=== PATIENT | male | born 1930 | race Caucasian/White ===

== ENCOUNTER 2016-05-12 20:48 | Inpatient (IN) | payer MEDICARE, MEDICAID ==
[~2016-05-12] VITALS: Ht 175.3 cm; Wt 67.1 kg
[2016-05-12 21:12] LABS: APPEARANCE,URINE Clear (CLEAR); BILIRUBIN,URINE Negative (NEGATIVE); BLOOD, URINE Moderate Ery/uL (NEGATIVE); COLOR,URINE Yellow (YELLOW); KETONES,URINE Negative (NEGATIVE); LEUKOCYTE ESTERASE ,URINE Negative (NEGATIVE); NITRITE, URINE Negative (NEGATIVE); PROTEIN,URINE Negative (NEGATIVE); UGLUCOSE Negative (NEGATIVE); UROBILINOGEN,URINE 0.2 EU/dL (0.2)
[2016-05-12 21:24] LABS: BACTERIA,URINE Rare /HPF (None Seen); SQUAMOUS EPITHELIAL CELL,UR Few /HPF (None Seen); WBC,URINE 0-2 /HPF (0-3)
[2016-05-12 21:32] LABS: BASOPHILS # (AUTO) 0.1 /CMM (0.0-0.2); BASOPHILS % (AUTO) 0.8 % (0.0-2.0); EOSINOPHILS % (AUTO) 0.6 % (0.0-6.0); HEMATOCRIT 38 % (39-51); HEMOGLOBIN 13.3 g/dL (13.5-17.5); LYMPHOCYTES # (AUTO) 1.3 /CMM (0.8-4.8); LYMPHOCYTES % (AUTO) 17.8 % (20.0-44.0); MEAN CORPUSCULAR HEMOGLOBIN 31 PG (26.0-33.0); MEAN CORPUSCULAR HGB CONC 35 g/dl (31.0-36.0); MEAN CORPUSCULAR VOLUME 87 fL (80-96); MONOCYTES # (AUTO) 0.4 /CMM (0.1-1.30); MONOCYTES % (AUTO) 5.1 % (2.0-12.0); NEUTROPHILS # (AUTO) 5.7 /CMM (1.8-8.9); NEUTROPHILS % (AUTO) 75.7 % (43.0-81.0); PLATELET COUNT (AUTO) 138 /CMM (150-450); RDW COEFFICIENT OF VARIATION 12.4 (11.5-15.0); RED BLOOD CELL COUNT(AUTO) 4.36 MIL/uL (4.5-6.0); WHITE BLOOD COUNT (AUTO) 7.5 K/uL (4.3-11.0)
[2016-05-12 21:41] LABS: POTASSIUM 4.1 mmol/L (3.5-5.1)
[2016-05-12 21:43] LABS: INR 1.06 (0.87-1.13)
[2016-05-12 21:47] LABS: ALBUMIN 3.5 g/dL (3.4-5.0); BILIRUBIN,DIRECT 0.2 mg/dL (0.0-0.2); BILIRUBIN,TOTAL 0.8 mg/dL (0.2-1.0); TOTAL PROTEIN, SERUM 6.8 g/dL (6.4-8.2)
[2016-05-12 21:49] LABS: TROPONIN I 0.042 ng/mL (0.00-0.056)
[2016-05-12 21:50] LABS: SALICYLATE 0.4 mg/dL (2.8-20.0)
[2016-05-12 22:01] LABS: THYROID STIMULATING HORMONE 2.331 uIU/mL (0.358-3.74)
[2016-05-12 23:00] VITALS: BP 159/77
[2016-05-13] MEDS ORDERED: HYDROCODONE/APAP 5/325MG 1 EACH TABLET PO PRN
[2016-05-13] MEDS ORDERED: ONDANSETRON HCL/PF 4 MG/2 ML VIAL IVP PRN
[2016-05-13] MEDS ORDERED: MAGNESIUM HYDROXIDE 30 ML UDC PO PRN
[2016-05-13] MEDS ORDERED: ZOLPIDEM TARTRATE 5 MG TABLET PO PRN
[2016-05-13] MEDS ORDERED: ENOXAPARIN SODIUM 30 MG/0.3 ML DISP.SYRIN SQ SCH
[2016-05-13] MEDS ORDERED: ACETAMINOPHEN 325 MG TABLET PO PRN
[2016-05-13] MEDS ORDERED: Z GUARD REMEDY 2 OZ OINT TP PRN
[2016-05-13] MEDS ORDERED: MAG HYDROX/AL HYDROX/SIMETH 30 ML UDC PO PRN
[2016-05-13] MEDS ORDERED: ACETAMINOPHEN 325 MG TABLET ONE (00:08)
[2016-05-13] MEDS ORDERED: DESM0.2T2 PO (00:08)
[2016-05-13] MEDS ORDERED: LEVO50TA8 PO (00:14)
[2016-05-13] MEDS ORDERED: SOLI5TAB PO (00:14)
[2016-05-13] MEDS ORDERED: ASPI-991 PO (00:14)
[2016-05-13] MEDS ORDERED: IMIP50TA7 PO (00:14)
[2016-05-13] MEDS ORDERED: CALC-838 PO (00:14)
[2016-05-13] MEDS ORDERED: SILO8CAP PO (00:14)
[2016-05-13] MEDS ORDERED: IV NS 0.9% 1,000 ML ONE (01:07)
[2016-05-13] MEDS ORDERED: IV SET PRIMARY PUMP SET 1 EA INFUS.SET MC ONE (01:08)
[2016-05-13] MEDS: IV NS 0.9% 1,000 ML IV PRN ×2 (01:15→19:07)
[2016-05-13 04:38] VITALS: BP 135/82
[2016-05-13 07:00] VITALS: BP 134/74
[2016-05-13 07:45] LABS: BASOPHILS % (AUTO) 0.3 % (0.0-2.0); EOSINOPHILS % (AUTO) 0.8 % (0.0-6.0); HEMATOCRIT 38 % (39-51); HEMOGLOBIN 13.1 g/dL (13.5-17.5); LYMPHOCYTES # (AUTO) 1.4 /CMM (0.8-4.8); LYMPHOCYTES % (AUTO) 27.8 % (20.0-44.0); MEAN CORPUSCULAR HEMOGLOBIN 30 PG (26.0-33.0); MEAN CORPUSCULAR HGB CONC 35 g/dl (31.0-36.0); MEAN CORPUSCULAR VOLUME 88 fL (80-96); MONOCYTES # (AUTO) 0.4 /CMM (0.1-1.30); MONOCYTES % (AUTO) 8.3 % (2.0-12.0); NEUTROPHILS # (AUTO) 3.1 /CMM (1.8-8.9); NEUTROPHILS % (AUTO) 62.8 % (43.0-81.0); PLATELET COUNT (AUTO) 129 /CMM (150-450); RDW COEFFICIENT OF VARIATION 13.3 (11.5-15.0); RED BLOOD CELL COUNT(AUTO) 4.32 MIL/uL (4.5-6.0)
[2016-05-13 07:54] LABS: CALCIUM, SERUM 8.1 mg/dL (8.5-10.1); CREATININE 0.8 mg/dL (0.6-1.3); MAGNESIUM 1.6 mg/dL (1.8-2.4); PHOSPHORUS 2.5 mg/dL (2.5-4.9); POTASSIUM 3.7 mmol/L (3.5-5.1)
[2016-05-13] MEDS: ASPIRIN 325 MG TABLET PO SCH (08:59)
[2016-05-13] MEDS: PANTOPRAZOLE 40 MG TABLET.DR PO SCH (09:00)
[2016-05-13] MEDS: CALCIUM CARB 600MG /VIT D 1 EACH TABLET PO SCH (09:00)
[2016-05-13] MEDS: LEVOTHYROXINE SODIUM 50 MCG TABLET PO SCH (09:00)
[2016-05-13] MEDS: SOLIFENACIN SUCCINATE 5 MG TABLET PO SCH (09:00)
[2016-05-13] MEDS ORDERED: SECONDARY IV SET 1 EA INFUS.SET MC ONE (10:50)
[2016-05-13] MEDS: Magnesium 1GM/D5W 100ML PREMIX 100 ML IV SCH ×4 (10:55→14:45)
[2016-05-13] MEDS ORDERED: IOHEXOL-350 100 ML VIAL IV ONE (13:55)
[2016-05-13] MEDS ORDERED: Magnesium 1GM/D5W 100ML PREMIX 1 G in PREMIX 1 EA IV SCH (14:00)
[2016-05-13 16:00] VITALS: BP 130/85
[2016-05-13 16:38] LABS: URINE SODIUM, RANDOM 28 mmol/l (40-220)
[2016-05-13 20:00] VITALS: BP 106/63
[2016-05-13 20:08] LABS: OSMOLALITY,URINE 163 mOS/kg (340-1090)
[2016-05-13] MEDS ORDERED: SILODOSIN 8 MG PO SCH (22:00)
[2016-05-13] MEDS ORDERED: DESMOPRESSIN ACETATE 0.1 MG TABLET PO SCH (22:00)
[2016-05-13] MEDS: IMIPRAMINE 25 MG TABLET PO SCH (22:56)
[2016-05-13] MEDS: ATORVASTATIN 40 MG TABLET PO SCH (22:56)
[2016-05-13] MEDS: ENOXAPARIN SODIUM 40 MG/0.4 ML DISP.SYRIN SQ SCH (22:58)
[2016-05-14] MEDS: IV NS 0.9% 1,000 ML IV PRN (06:29)
[2016-05-14 08:00] VITALS: BP 139/69
[2016-05-14] MEDS: ASPIRIN 325 MG TABLET PO SCH (08:39)
[2016-05-14] MEDS: SOLIFENACIN SUCCINATE 5 MG TABLET PO SCH (08:39)
[2016-05-14] MEDS: LEVOTHYROXINE SODIUM 50 MCG TABLET PO SCH (08:39)
[2016-05-14] MEDS: CALCIUM CARB 600MG /VIT D 1 EACH TABLET PO SCH (08:39)
[2016-05-14] MEDS: PANTOPRAZOLE 40 MG TABLET.DR PO SCH (08:39)
[2016-05-14 13:14] LABS: BASOPHILS % (AUTO) 0.3 % (0.0-2.0); EOSINOPHILS # (AUTO) 0.1 /CMM (0.0-0.7); EOSINOPHILS % (AUTO) 1.7 % (0.0-6.0); HEMATOCRIT 39 % (39-51); LYMPHOCYTES # (AUTO) 1.1 /CMM (0.8-4.8); LYMPHOCYTES % (AUTO) 25.6 % (20.0-44.0); MEAN CORPUSCULAR HEMOGLOBIN 30 PG (26.0-33.0); MEAN CORPUSCULAR HGB CONC 33 g/dl (31.0-36.0); MEAN CORPUSCULAR VOLUME 89 fL (80-96); MONOCYTES # (AUTO) 0.4 /CMM (0.1-1.30); MONOCYTES % (AUTO) 9.5 % (2.0-12.0); NEUTROPHILS # (AUTO) 2.7 /CMM (1.8-8.9); NEUTROPHILS % (AUTO) 62.9 % (43.0-81.0); PLATELET COUNT (AUTO) 150 /CMM (150-450); RDW COEFFICIENT OF VARIATION 13.5 (11.5-15.0); RED BLOOD CELL COUNT(AUTO) 4.39 MIL/uL (4.5-6.0); WHITE BLOOD COUNT (AUTO) 4.3 K/uL (4.3-11.0)
[2016-05-14 13:15] LABS: CREATININE 0.9 mg/dL (0.6-1.3); MAGNESIUM 1.7 mg/dL (1.8-2.4); PHOSPHORUS 3.3 mg/dL (2.5-4.9)
[2016-05-14 13:24] LABS: THYROID STIMULATING HORMONE 4.671 uIU/mL (0.358-3.74); URIC ACID 3.1 mg/dL (2.6-7.2)
[2016-05-14] MEDS ORDERED: DOCUSATE SODIUM 100 MG CAPSULE PO PRN (15:00)
[2016-05-14] MEDS: Magnesium 1GM/D5W 100ML PREMIX 100 ML IV SCH ×2 (15:05→16:23)
[2016-05-14] MEDS ORDERED: SET RED CAP 1 EA INFUS.SET MC ONE (15:24)
[2016-05-14 16:00] VITALS: BP 140/65
[2016-05-14 20:00] VITALS: BP 112/64
[2016-05-14] MEDS: ENOXAPARIN SODIUM 40 MG/0.4 ML DISP.SYRIN SQ SCH (21:06)
[2016-05-14] MEDS: ATORVASTATIN 40 MG TABLET PO SCH (21:07)
[2016-05-14] MEDS: IMIPRAMINE 25 MG TABLET PO SCH (21:07)
[2016-05-14 22:00] VITALS: BP 112/64
[2016-05-15 06:48] LABS: BASOPHILS % (AUTO) 0.6 % (0.0-2.0); EOSINOPHILS # (AUTO) 0.1 /CMM (0.0-0.7); EOSINOPHILS % (AUTO) 2.2 % (0.0-6.0); HEMATOCRIT 39 % (39-51); HEMOGLOBIN 13.3 g/dL (13.5-17.5); LYMPHOCYTES # (AUTO) 1.2 /CMM (0.8-4.8); LYMPHOCYTES % (AUTO) 24.6 % (20.0-44.0); MEAN CORPUSCULAR HEMOGLOBIN 30 PG (26.0-33.0); MEAN CORPUSCULAR HGB CONC 34 g/dl (31.0-36.0); MEAN CORPUSCULAR VOLUME 88 fL (80-96); MONOCYTES # (AUTO) 0.4 /CMM (0.1-1.30); MONOCYTES % (AUTO) 8.1 % (2.0-12.0); NEUTROPHILS # (AUTO) 3.1 /CMM (1.8-8.9); NEUTROPHILS % (AUTO) 64.5 % (43.0-81.0); PLATELET COUNT (AUTO) 134 /CMM (150-450); RDW COEFFICIENT OF VARIATION 13.4 (11.5-15.0); RED BLOOD CELL COUNT(AUTO) 4.42 MIL/uL (4.5-6.0); WHITE BLOOD COUNT (AUTO) 4.8 K/uL (4.3-11.0)
[2016-05-15 07:12] LABS: CALCIUM, SERUM 8.2 mg/dL (8.5-10.1); CREATININE 0.9 mg/dL (0.6-1.3)
[2016-05-15] MEDS: SOLIFENACIN SUCCINATE 5 MG TABLET PO SCH (08:10)
[2016-05-15] MEDS: PANTOPRAZOLE 40 MG TABLET.DR PO SCH (08:10)
[2016-05-15] MEDS: LEVOTHYROXINE SODIUM 50 MCG TABLET PO SCH (08:10)
[2016-05-15] MEDS: CALCIUM CARB 600MG /VIT D 1 EACH TABLET PO SCH (08:10)
[2016-05-15 08:14] VITALS: BP 131/77
[2016-05-15] MEDS ORDERED: CLOPIDOGREL BISULFATE 75 MG TABLET PO SCH (09:00)
== END 2016-05-15 15:45 | disposition home health service (06) | DRG 64 ==
LOC: ER 20:50 → TELE 22:18 → MED 05-13 09:44
PROVIDERS: ADMIT Internal Medicine; ATTEND Internal Medicine
DX: I63.9 Cerebral infarction, unspecified (principal); G93.40 Encephalopathy, unspecified; G45.9 Transient cerebral ischemic attack, unspecified; E22.2 Syndrome of inappropriate secretion of antidiuretic hormone; N40.0 Benign prostatic hyperplasia without lower urinary tract symptoms; I10 Essential (primary) hypertension; D63.8 Anemia in other chronic diseases classified elsewhere; Z95.0 Presence of cardiac pacemaker; E03.9 Hypothyroidism, unspecified; I25.10 Atherosclerotic heart disease of native coronary artery without angina pectoris; I65.23 Occlusion and stenosis of bilateral carotid arteries; T38.895A Adverse effect of other hormones and synthetic substitutes, initial encounter; Y92.009 Unspecified place in unspecified non-institutional (private) residence as the place of occurrence of the external cause; R33.8 Other retention of urine
CPT/HCPCS: 36415; 70450-TC; 70496-TC; 70498-TC; 71010-TC; 76770-TC; 80048-TC; 80061-TC; 80076-TC; 80305; 81000-TC; 82962-TC; 83735-TC; 83935-TC; 84100-TC; 84300-TC; 84443-TC; 84484-TC; 84550-TC; 85025-TC; 85652-TC; 85730-TC; 86592; 87081-TC; 93307-TC; 93880-TC; A4216; A4606; G0480; G6039-TC; J1650; J3475; J7030; Q9967; Z7610

== ENCOUNTER 2019-07-24 19:25 | Inpatient (IN) | payer MEDICARE, OTHER ==
[~2019-07-24] VITALS: Ht 162.6 cm; Wt 56.7 kg
[~2019-07-24 19:25] MED LIST: CALC-838 PO; DESM0.2T4 PO; IMIP50TA7 PO; SILO8CAP2 PO; SOLI5TAB2 PO
[2019-07-24 19:51] LABS: BASOPHILS # (AUTO) 0.1 /CMM (0.0-0.2); EOSINOPHILS % (AUTO) 1.3 % (0.0-6.0); HEMATOCRIT 41 % (39-51); HEMOGLOBIN 13.4 g/dL (13.5-17.5); LYMPHOCYTES # (AUTO) 1.6 /CMM (0.8-4.8); LYMPHOCYTES % (AUTO) 30.9 % (20.0-44.0); MEAN CORPUSCULAR HGB CONC 32 g/dl (31.0-36.0); MEAN CORPUSCULAR VOLUME 93 fL (80-96); MONOCYTES # (AUTO) 0.3 /CMM (0.1-1.30); MONOCYTES % (AUTO) 6.3 % (2.0-12.0); NEUTROPHILS # (AUTO) 3.2 /CMM (1.8-8.9); NEUTROPHILS % (AUTO) 60.5 % (43.0-81.0); PLATELET COUNT (AUTO) 131 /CMM (150-450); RED BLOOD CELL COUNT(AUTO) 4.44 MIL/uL (4.5-6.0); WHITE BLOOD COUNT (AUTO) 5.3 K/uL (4.3-11.0)
--- NOTE | 2019-07-24 19:52 | NUR ---
SADIA FROM HOME WITH DAEMMETTTHER AT BEDSIDE. TO ER BED 6. AAOX4. NOT IN RESP DISTRESS. BROUGHT IN FOR SOB COUPLE OF HOURS JIRA ADMINISTRATOR. PT WAS REPORTED BY EMS SATTING @ 90%. BREATHING RAPID AND SHALLOW. PLACED ON O2 VIA NC @ 4LPM SATTING AT 97%. MD WAS AT BEDSIDE FOR EVAL. ORDERS RECEIVED NOTED AND CARRIED OUT. IV LINE OBTAINED ON THE L FOREARM 20G. BLOO DRAWN AND GIVEN TO SMART GRID ENGINEER.
[2019-07-24 20:08] LABS: CALCIUM, SERUM 8.8 mg/dL (8.5-10.1); CREATININE 0.9 mg/dL (0.6-1.3); POTASSIUM 4.5 mmol/L (3.5-5.1)
[2019-07-24 20:17] LABS: D-DIMER 0.55 mg/L(FEU (0.17-0.50)
[2019-07-24 20:23] LABS: ALBUMIN 3.9 g/dL (3.4-5.0); BILIRUBIN,DIRECT 0.1 mg/dL (0.0-0.2); BILIRUBIN,TOTAL 0.7 mg/dL (0.2-1.0); TOTAL PROTEIN, SERUM 7.4 g/dL (6.4-8.2)
--- NOTE | 2019-07-24 21:07 | NUR ---
TELE 324-2
--- NOTE | 2019-07-24 21:40 | NUR ---
REPORT GIVEN TO GERARD VEGA FOR TONI.
[2019-07-24] MEDS ORDERED: FUROSEMIDE 20 MG/2 ML VIAL ONE (21:51)
[2019-07-24] MEDS ORDERED: FUROSEMIDE 20 MG/2 ML VIAL IV ONE (22:00)
--- NOTE | 2019-07-24 22:25 | NUR ---
URINE OUTPUT NOTED @ 425ML
[2019-07-24 22:30] VITALS: BP 156/82
--- NOTE | 2019-07-24 22:30 | NUR ---
ARTISTS' MODEL NOTES Received patient from ER via gurney. On O2 inhalation via NC @ 2LPM, saturation well. Slight SOB noted with exertion. Patient denies any discomfort at this time. Transferred patient to bed comfortably. Noted ambulatory with assistance. Admission routine done. Patient's belongings inventory completed by the assigned FLUSH TESTER. Kept on bed clean, dry and comfortable. On tele monitor with V-pacing with PVCs multifocal no ST elevation. Awaiting for admission orders from commissioner of internal revenue MD, Dr. Morin. On fall and aspiration precautions. Urinal provided at bedside. Will continue to monitor accordingly.
--- NOTE | 2019-07-24 22:35 | NUR ---
RN NOTES Put on airborn/contact isolation while pending covid test result. Instructed patient on isolation precautions, verbalized understanding.
--- NOTE | 2019-07-24 22:38 | NUR ---
PT TRANPORTED TO UNIT ON [facility] WITH EMT AND RN AT BEDSIDE W/ ALCS PROTOCOL. NAD NOTED DURTING TRANSPORT. PT AMBULATED FROM RNEY TO BED ON STEADY GAIT W/O ASSIST
--- NOTE | 2019-07-24 23:00 | NUR ---
DAUGHTER: OLAMIDE [phone]
--- NOTE | 2019-07-24 23:15 | NUR ---
RN NOTES Admission orders noted and carried out.
[2019-07-24] MEDS ORDERED: HYDROCODONE/APAP 5/325MG 1 EACH TABLET PO PRN (23:30)
[2019-07-24] MEDS ORDERED: MAG HYDROX/AL HYDROX/SIMETH 30 ML UDC PO PRN (23:30)
[2019-07-24] MEDS ORDERED: ONDANSETRON HCL/PF 4 MG/2 ML VIAL IVP PRN (23:30)
[2019-07-24] MEDS ORDERED: ACETAMINOPHEN 325 MG TABLET PO PRN (23:30)
[2019-07-24] MEDS ORDERED: ZOLPIDEM TARTRATE 5 MG TABLET PO PRN (23:30)
[2019-07-24] MEDS ORDERED: MAGNESIUM HYDROXIDE 30 ML UDC PO PRN (23:30)
[2019-07-24] MEDS ORDERED: Z GUARD REMEDY 2 OZ OINT TP PRN (23:30)
--- NOTE | 2019-07-24 23:32 | NUR ---
PATIENT NOTED WITH NSR AT THIS TIME.
[2019-07-24] MEDS: ENOXAPARIN SODIUM 40 MG/0.4 ML DISP.SYRIN SQ SCH (23:38)
[2019-07-25] VITALS: BP 147/88
[2019-07-25 00:01] VITALS: BP 147/88
[2019-07-25 04:00] VITALS: BP 138/79
--- NOTE | 2019-07-25 06:50 | NUR ---
JEWEL SORTER CLOSING NOTES Patient asleep on bed, on high Fowlers position. On O2 inhalation via NC @ 2LPM, no SOB/respiratory distress noted, breathing even and unlabored. Patient denies any discomfort at this time. All nursing needs attended. Due meds given as ordered. On tele monitor with NSR noted. With occasional V-pacing with multifocal PVCs. Kept on bed clean, dry and comfortable. Endorsed.
[2019-07-25 06:56] LABS: BASOPHILS % (AUTO) 0.7 % (0.0-2.0); EOSINOPHILS % (AUTO) 0.8 % (0.0-6.0); HEMATOCRIT 40 % (39-51); HEMOGLOBIN 13.4 g/dL (13.5-17.5); LYMPHOCYTES # (AUTO) 1.4 /CMM (0.8-4.8); LYMPHOCYTES % (AUTO) 27.9 % (20.0-44.0); MEAN CORPUSCULAR HGB CONC 33 g/dl (31.0-36.0); MEAN CORPUSCULAR VOLUME 92 fL (80-96); MONOCYTES # (AUTO) 0.3 /CMM (0.1-1.30); MONOCYTES % (AUTO) 6.9 % (2.0-12.0); NEUTROPHILS # (AUTO) 3.1 /CMM (1.8-8.9); NEUTROPHILS % (AUTO) 63.7 % (43.0-81.0); PLATELET COUNT (AUTO) 126 /CMM (150-450); RED BLOOD CELL COUNT(AUTO) 4.36 MIL/uL (4.5-6.0); WHITE BLOOD COUNT (AUTO) 4.9 K/uL (4.3-11.0)
[2019-07-25 07:00] LABS: ALBUMIN 3.6 g/dL (3.4-5.0); CALCIUM, SERUM 8.5 mg/dL (8.5-10.1); MAGNESIUM 1.9 mg/dL (1.8-2.4); PHOSPHORUS 3.2 mg/dL (2.5-4.9); POTASSIUM 3.5 mmol/L (3.5-5.1); TOTAL PROTEIN, SERUM 6.8 g/dL (6.4-8.2)
[2019-07-25 07:07] LABS: THYROID STIMULATING HORMONE 2.718 uIU/mL (0.358-3.74)
--- NOTE | 2019-07-25 07:39 | NUR ---
rn notes patient received on nasal cannula, no sob noted, patient shows no s/s of pain at this time. a/o x4 and speaks no latvian. Tele monitor present with NSR. BRP with urinal. LFA 20. bed at the lowest setting, call light within reach, side rails up x2.
[2019-07-25] MEDS ORDERED: FUROSEMIDE 20 MG/2 ML VIAL IV SCH (09:00)
[2019-07-25] MEDS ORDERED: CLON0.5T4 PO (09:30)
[2019-07-25] MEDS ORDERED: TAMS-12 PO (09:30)
[2019-07-25] MEDS ORDERED: NEBI5TAB8 PO (09:30)
[2019-07-25] MEDS ORDERED: CYAN-51 PO (09:30)
[2019-07-25] MEDS ORDERED: CLOP75TA15 PO (09:30)
[2019-07-25] MEDS ORDERED: IMIP50TA7 PO (09:30)
[2019-07-25] MEDS ORDERED: ATOR10TA PO (09:30)
[2019-07-25] MEDS ORDERED: SOLI5TAB2 PO (09:30)
[2019-07-25] MEDS ORDERED: CALC-838 PO (09:30)
[2019-07-25] MEDS ORDERED: LEVO50TA PO (09:30)
[2019-07-25] MEDS ORDERED: MECL-159 PO (09:31)
[2019-07-25 09:43] LABS: C-REACTIVE PROTEIN 0.3 mg/dL (0.0-0.9)
[2019-07-25 09:43] LABS: THYROID STIMULATING HORMONE 2.834 uIU/mL (0.358-3.74)
[2019-07-25] MEDS: POTASSIUM CHLORIDE 20 MEQ TAB.PRT.SR PO SCH ×3 (10:08→12:27)
[2019-07-25] MEDS: FUROSEMIDE 40 MG/4 ML VIAL IV SCH ×3 (10:11→17:09)
[2019-07-25] MEDS ORDERED: clonazePAM 0.5 MG TABLET PO PRN (10:30)
[2019-07-25] MEDS ORDERED: MECLIZINE HCL 25 MG TABLET PO PRN (10:30)
--- NOTE | 2019-07-25 10:46 | NUR ---
MANOLO CONSULT: SW received consult for "lives alone" SW attempted to meet with pt at bedside, however, pt is currently in isolation for r/o COVID. SW called pt and pt stated his Syrian is is very bad and only speaks Guinean. At this time due to isolation precaution, SW is unable to use the translation phone. MANOLO will contact pts daughter for collateral information.
--- NOTE | 2019-07-25 10:56 | NUR ---
FAMILY CONTACT: SW contacted pts granddaughter Leela ([phone]) and discussed pts current living situation. She states pt lives alone and before making any decisions regarding placement options she would like to talk to the hospitalist regarding pts current medical condition as she states she is unaware what is going on with pt. SW stated that she would inform hospitalist. MANOLO contacted hospitalist and requested a call to granddaughter.
[2019-07-25] MEDS: OXYBUTYNIN CHLORIDE 5 MG TABLET PO SCH ×2 (11:15→17:09)
[2019-07-25] MEDS: CHOLECALCIFEROL 1,000 UNIT TABLET (VIT D3) PO SCH (11:15)
[2019-07-25] MEDS: CYANOCOBALAMIN 500 MCG TABLET PO SCH (11:15)
--- NOTE | 2019-07-25 11:23 | NUR ---
MANOLO NOTE: MANOLO informed Joana, case assistant that pt may need placement. She stated she will call granddaughter Leela [phone] to discuss placement options.
[2019-07-25] MEDS: IMIPRAMINE 25 MG TABLET PO SCH (12:27)
[2019-07-25] MEDS: TAMSULOSIN 0.4 MG CAP.SR.24H PO SCH (17:09)
[2019-07-25] MEDS: METOPROLOL TARTRATE 25 MG TABLET PO SCH (17:09)
--- NOTE | 2019-07-25 18:12 | NUR ---
rn notes TONI given to Andie RN, patient to be transfered to [facility]
--- NOTE | 2019-07-25 18:54 | NUR ---
RECEIVED PATIENT FROM MED SURG. PATIENT IS SETTLED IN ROOM. NO SIGNS OF ACUTE DISTRESS/ RESPIRATORY DISTRESS NOTED. SAFETY MEASURES IMPLEMENTED, BED IN LOWEST POSITION, LOCKED, SIDE RAILS UP, CALL LIGHT WITHIN REACH. WILL ENDORSE TO ONCOMING SHIFT RN FOR CONTINUITY OF CARE. 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
[2019-07-25 20:00] VITALS: BP 134/65
[2019-07-25] MEDS: ENOXAPARIN SODIUM 40 MG/0.4 ML DISP.SYRIN SQ SCH (23:07)
[2019-07-26] VITALS (7 sets, daily range): BP systolic 99–131; BP diastolic 61–77
--- NOTE | 2019-07-26 06:16 | NUR ---
RN note Received patient in bed awake watching TV with no distress noted. Breathing even and unlabored. On O2 via nasal cannula at 2lpm tolerating well. Vital signs within normal level. No complaint of pain or discomfort. Alert and oriented. Able to verbalize needs and answers question, ambulatory, says "thank you". Burmese, Chinese speaking with little italian. At about 2100, granddaughter called. She just spoke with her grandfather and she said her grandfather was confused because half of the question she asked was answered wrongly like "Do you know where you are? She also said that her grandfather has a history of stroke and the only indication was confusion. No pain or any manifestation that he is having a stroke. Responded that for now continuous monitoring will be done and will call her if there is any change. Patient was constantly monitored. No significant change of condition noted, alert and oriented x 3. Kept clean and dry. Will endorse to next shift for continuity of care.
[2019-07-26] MEDS: CYANOCOBALAMIN 500 MCG TABLET PO SCH (08:18)
[2019-07-26] MEDS: TAMSULOSIN 0.4 MG CAP.SR.24H PO SCH ×2 (08:18→17:57)
[2019-07-26] MEDS: LEVOTHYROXINE SODIUM 50 MCG TABLET PO SCH (08:18)
[2019-07-26] MEDS: OXYBUTYNIN CHLORIDE 5 MG TABLET PO SCH ×2 (08:18→17:57)
[2019-07-26] MEDS: ATORVASTATIN 10 MG TABLET PO SCH (08:19)
[2019-07-26] MEDS: CLOPIDOGREL BISULFATE 75 MG TABLET PO SCH (08:19)
[2019-07-26] MEDS: IMIPRAMINE 25 MG TABLET PO SCH (09:39)
[2019-07-26] MEDS: FUROSEMIDE 40 MG TABLET PO SCH (09:40)
[2019-07-26] MEDS: POTASSIUM CHLORIDE 20 MEQ TAB.PRT.SR PO SCH (09:41)
--- NOTE | 2019-07-26 10:19 | NUR ---
RN NOTE 0715: Received patient awake, A/Ox4, Beninese speaking, understand little Czech. On 2LPM of O2 via NC, no respiratory distress noted at this time. With good UOP per previous shift. 0830: Due meds given, tolerated. Tolerated diet well. Placed patient on room air, will monitor breathing. 30: CT called for CT head w/o, informed them that patient is ready. 55: S/E by Dr. Brenner. Per Echo/US tech, prelim EF 20-25% and LLE DVT, on Lovenox at hs. Restarted patient on Lasix 40 PO daily, made patient aware. 1010: Still awaiting CT. No any significant changes noted at this time.
[2019-07-26 11:58] LABS: ALBUMIN 3.6 g/dL (3.4-5.0); BILIRUBIN,TOTAL 0.6 mg/dL (0.2-1.0); CALCIUM, SERUM 8.9 mg/dL (8.5-10.1); CREATININE 1.3 mg/dL (0.6-1.3); MAGNESIUM 1.9 mg/dL (1.8-2.4); PHOSPHORUS 3.7 mg/dL (2.5-4.9); POTASSIUM 3.6 mmol/L (3.5-5.1); TOTAL PROTEIN, SERUM 6.9 g/dL (6.4-8.2)
[2019-07-26 11:59] LABS: BASOPHILS % (AUTO) 0.5 % (0.0-2.0); EOSINOPHILS % (AUTO) 0.7 % (0.0-6.0); HEMATOCRIT 42 % (39-51); HEMOGLOBIN 13.8 g/dL (13.5-17.5); LYMPHOCYTES % (AUTO) 20.4 % (20.0-44.0); MEAN CORPUSCULAR HGB CONC 33 g/dl (31.0-36.0); MEAN CORPUSCULAR VOLUME 92 fL (80-96); MONOCYTES # (AUTO) 0.3 /CMM (0.1-1.30); MONOCYTES % (AUTO) 7.2 % (2.0-12.0); NEUTROPHILS # (AUTO) 3.5 /CMM (1.8-8.9); NEUTROPHILS % (AUTO) 71.2 % (43.0-81.0); PLATELET COUNT (AUTO) 131 /CMM (150-450); RED BLOOD CELL COUNT(AUTO) 4.57 MIL/uL (4.5-6.0); WHITE BLOOD COUNT (AUTO) 4.8 K/uL (4.3-11.0)
[2019-07-26] MEDS: CHOLECALCIFEROL 1,000 UNIT TABLET (VIT D3) PO SCH (12:27)
--- NOTE | 2019-07-26 12:51 | NUR ---
RN NOTE Done with CT head, waiting for result. Reported to Michael GEE for TONI. No any significant changes. Able to ambulate in the room with just supervision.
--- NOTE | 2019-07-26 13:12 | NUR ---
SECURITY CHECKER NOTES RECEIVED PATIENT FROM NURSE GARZA FOR TONI, A/O X 4, BREATHING AT ROOM AIR, UNLABORED BREATHING, NO SIGNS OF RESPIRATORY DISTRESS, SIDE RAILS UP.
--- NOTE | 2019-07-26 14:00 | NUR ---
MACHINE I CUTTER NOTES ENDORSED PATIENT TO NURSE RIVAS FOR TONI. PATIENT IS A/0 X 4, BREATHING AT ROOM AIR, AMBULATORY WITH ASSIST.
--- NOTE | 2019-07-26 14:30 | NUR ---
RN NOTE TRANSFERRED FROM [facility] Received report from Michael GEE in [facility]. Patient is in room 201, A/O x4, showing no signs of acute distress or SOB, breathing is even and unlabored, saturating 96% on RA. BP 104/72, HR 74 RR 18 T 98.3. IV line in the RFA #20g s/l is clean and intact flushing well. DEE pacemaker noted. Skin assessed and skin remains intact. 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 Bed is in lowest position, side rails x3 in upright position, call light is within reach and patient is aware of how to call for assistance when needed. Fall, safety and aspiration precautions enforced. Will continue with plan of care.
--- NOTE | 2019-07-26 16:09 | NUR ---
RN NOTE DC Lovenox per MD. Patient is already on Plavix.
[2019-07-26] MEDS: METOPROLOL TARTRATE 25 MG TABLET PO SCH (17:57)
--- NOTE | 2019-07-26 19:14 | NUR ---
RN CLOSING NOTE Patient is resting in bed, A/O x4, showing no signs of acute distress or SOB, breathing is even and unlabored, saturating 96% on RA. IV line in the RFA #20g s/l is clean and intact flushing well. DEE pacemaker noted. All patient needs met, all due medications given, patient kept clean and dry throughout shift. Bed is in lowest position, side rails x3 in upright position, call light is within reach and patient is aware of how to call for assistance when needed. Fall, safety and aspiration precautions enforced. Will endorse to conservation worker for TONI.
--- NOTE | 2019-07-26 19:30 | NUR ---
Received patient in the bed. Alert and orienated x4. Speaks Tuvaluan but with gesture and him understanding some sami we are able to communicate. Spoke to his dtr on the phone, requied eye gtt to help his dry eye, MD sood ordered Artifical tear. Noted upper and lower dentures in the mouth Bed alarm director student union light within his reach reviewed with the patient
[2019-07-26] MEDS ORDERED: POLYVINYL ALCOHOL 15 ML BOTTLE EACHEYE PRN ×2 (21:00)
--- NOTE | 2019-07-27 06:55 | NUR ---
OOB this AM in the room doing leg exercisizing and is alert and orientatedX4. Smiling and No SOB slept thru the night. Before going to sleep last night we ambulated the hallway unsteady on his legs
--- NOTE | 2019-07-27 07:51 | NUR ---
MS RN OPENING NOTE PATIENT IN BED RESTING COMFORTABLY. PATIENT IN NO ACUTE DISTRESS. NO SOB NOTED. PATIENT BREATHING IS EVEN AND UNLABORED. PATIENT STATES NO PAIN AT THIS TIME. PATIENT SAFETY PRECAUTIONS IN PLACE. PATIENT BED IS LOCKED AND IN LOWEST POSITION. CALL LIGHT WITHIN REACH. WILL CONTINUE TO MONITOR.
[2019-07-27 08:00] VITALS: BP 91/51
[2019-07-27] MEDS: ATORVASTATIN 10 MG TABLET PO SCH (08:14)
[2019-07-27] MEDS: OXYBUTYNIN CHLORIDE 5 MG TABLET PO SCH (08:14)
[2019-07-27] MEDS: LEVOTHYROXINE SODIUM 50 MCG TABLET PO SCH (08:14)
[2019-07-27] MEDS: CYANOCOBALAMIN 500 MCG TABLET PO SCH (08:14)
[2019-07-27] MEDS: TAMSULOSIN 0.4 MG CAP.SR.24H PO SCH (08:14)
[2019-07-27] MEDS: POTASSIUM CHLORIDE 20 MEQ TAB.PRT.SR PO SCH (08:15)
[2019-07-27] MEDS: CLOPIDOGREL BISULFATE 75 MG TABLET PO SCH (08:15)
[2019-07-27] MEDS: FUROSEMIDE 40 MG TABLET PO SCH (08:17)
[2019-07-27] MEDS: IMIPRAMINE 25 MG TABLET PO SCH (08:17)
--- NOTE | 2019-07-27 08:17 | NUR ---
MS RN NOTE HELD LASIX 0900 DOSE DUE TO LOW BP OF 91/51. PATIENT IN NO ACUTE DISTRESS. PATIENT TALKING, ALERT AND ORIENTED.
[2019-07-27] MEDS ORDERED: NEBI5TAB8 PO (10:12)
[2019-07-27] MEDS ORDERED: FURO-145 PO (10:12)
[2019-07-27 10:31] VITALS: BP 108/58
--- NOTE | 2019-07-27 14:50 | NUR ---
MS RN NOTE RECEIVED CALL FROM [facility] RENAL RADIOLOGY RESULTS FOR ULTRASOUND LOWER EXTREMITY IS NONOCCLUSIVE LEFT FEMORAL VEIN THROMBUS. DR. PRADO MADE AWARE AND NOTIFIED.
--- NOTE | 2019-07-27 14:51 | NUR ---
MS DIRECT SERVICE PROFESSIONAL NOTE PATIENT MEDICALLY CLEARED FOR DISCHARGE. PATIENT IN NO ACUTE DISTRESS. NO SOB NOTED. PATIENT BREATHING IS EVEN AND UNLABORED. DC INSTRUCTIONS PROVIDED TO PATIENT WITH DAUGHTER DISTRICT SERVICE MANAGER. PATIENT AND DAUGHTER VERBALIZED UNDERSTANDING. PATIENT HAS BELONGINGS AND SIGNED BELONGINGS LIST. PATIENT IV REMOVED. ID BAND REMOVED. PATIENT REFUSED TO HAVE SKIN ASSESSMENT. EDUCATED RISKS VS BENEFITS. PATIENT CONTINUED TO REFUSE. PATIENT KEPT CLEAN AND DRY THROUGHOUT SHIFT. PATIENT NEEDS AND CONCERNS ADDRESSED. PATIENT PICKED UP BY DAUGHTER AND GOING BACK HOME WITH HOMEHEALTH. MD AWARE OF DISCHARGE.
--- NOTE | 2019-07-27 15:00 | NUR ---
MS RN NOTE PATIENT HAD BEEN JUST DISCHARGED AT 1445 WHEN RESULT ARRIVED OF ULTRASOUND OF LEFT FEMORAL VEIN AT 1450. REPORTED AND CALLED TO PATIENTS GRANDDAUGHTER OLAMIDE OF RESULTS. WILL GIVE PHYSICAL COPY OF RESULTS WHEN PATIENT GRANDDAUGHTER ARRIVES FOR PICKUP. DR. PRADO HAD BEEN MADE AWARE. PER MD INFORM GRANDDAUGHTER TO INSTRUCT PATIENT TO STOP PLAVIX AND TAKE ELIQUIS AND FOLLOW UP WITH PCP. INFORMED GRAND DAUGHTER AND PER GRANDDAUGHTER WILL PILATES INSTRUCTOR NEW PAPERWORK AND FOLLOW UP WITH PREFERRED PHARMACY.
[2019-07-27] MEDS ORDERED: APIX5TAB PO (15:24)
--- NOTE | 2019-07-27 16:30 | NUR ---
MS RN NOTE PER DR. PRADO UPDATE PATIENT FAMILY ON NEW INFORMATION FOR DC. PATIENT DAUGHTER TETE AND GRANDDAUGHTER OLAMIDE PRESENT TO REPRESENT PATIENT TO PICKUP NEW PRESCRIPTION INFORMATION AND UPDATED DC PAPERWORK UPDATED BY DR. PRADO. EXPLAINED AND EDUCATED UPDATED PRESCRIPTION AND FOLLOW UP CARE. PER DAUGHTER ALREADY HAS FOLLOW UP SCHEDULE WITH PRIMARY CARE PROVIDER. PATIENT FAMILY ACKNOWLEDGED AND WILL EDUCATE PATIENT IN PLAN OF CARE. MD IS AWARE.
[2019-07-27] MEDS ORDERED: APIXABAN 5 MG TABLET PO SCH (17:00)
== END 2019-07-27 16:18 | disposition home health service (06) | DRG 280 ==
LOC: ER 19:27 → TELE 21:49 → TELE-TD 07-25 18:43 → TELE1 07-25 19:51 → MEDSG1 07-26 14:00 → MEDSG2 07-26 15:14
PROVIDERS: ADMIT Hospitalist; ATTEND Internal Medicine
DX: I11.0 Hypertensive heart disease with heart failure (principal); J96.01 Acute respiratory failure with hypoxia; I21.A1 Myocardial infarction type 2; N17.0 Acute kidney failure with tubular necrosis; I82.419 Acute embolism and thrombosis of unspecified femoral vein; I48.91 Unspecified atrial fibrillation; I50.23 Acute on chronic systolic (congestive) heart failure; N40.0 Benign prostatic hyperplasia without lower urinary tract symptoms; E03.9 Hypothyroidism, unspecified; Z95.0 Presence of cardiac pacemaker; Z79.899 Other long term (current) drug therapy; Z86.73 Personal history of transient ischemic attack (TIA), and cerebral infarction without residual deficits; I25.10 Atherosclerotic heart disease of native coronary artery without angina pectoris; E78.5 Hyperlipidemia, unspecified; D63.8 Anemia in other chronic diseases classified elsewhere; D69.6 Thrombocytopenia, unspecified; E86.0 Dehydration; I70.0 Atherosclerosis of aorta; N28.1 Cyst of kidney, acquired
CPT/HCPCS: 36415; 70450-TC; 71045-TC; 80048-TC; 80053-TC; 80061-TC; 80076-TC; 82728-TC; 83615-TC; 83735-TC; 83880; 84100-TC; 84439-TC; 84443-TC; 84484-TC; 85025-TC; 85378-TC; 85730-TC; 86140-TC; 87081-TC; 93307-TC; 93970-TC; 97116-TC; 97530-TC; G0378; J1650; J1940; U0003-CS